=== PATIENT | male | born 1945 | race Caucasian/White ===

== ENCOUNTER → 2017-06-24 | Outpatient (CLI) | payer OTHER, MEDICARE | LOC: LABMALL 08:38 | DX: I67.82 Cerebral ischemia (principal); G51.3 Clonic hemifacial spasm ==

== ENCOUNTER 2017-12-09 08:58 | Inpatient (IN) | payer OTHER, MEDICARE ==
[~2017-12-09] VITALS: Ht 167.6 cm; Wt 86.3 kg
[2017-12-09] VITALS (13 sets, daily range): BP systolic 83–125; BP diastolic 45–93
--- NOTE | ~2017-12-09 | 2DMMODE ---
[facility] [address] [place] [address] 2 D/M-MODE ECHOCARDIOGRAM Name: NICKY WARD Room #: 208-P [facility] IN [facility]#: [id number] Admission: 12/09/17 Attend Phys: Joey Smart, Discharge: Date of : 41 Date of Service: 12/09/17 1443 Report #: [id number] THIS REPORT FOR: //name// APPROVED REPORT Study performed: 12/09/2017 13:16:47 EXAM: Comprehensive 2D, Doppler, and color-flow Echocardiogram Patient Location: Bedside Room #: 208 Status: routine BSA: 1.84 HR: 95 bpm BP: 89/73 mmHg Other Information Study Quality: Adequate Indications Atrial Fibrillation 2D Dimensions RVDd: 35.51 mm LVEF(%): 10.91 (>50%) IVSd: 13.29 (7-11mm) LVOT Diam: 20.97 (18-24mm) LVDd: 49.40 mm PWd: 13.15 (7-11mm) Ascending Ao: 22.66 (22-36mm) LVDs: 47.01 (25-40mm) Aortic Root: 26.10 mm IVC: 28.00 mm Panda's LVEF: 10.91 % Volumes Left Atrial Volume (Systole) Single Plane 4CH: 78.57 mL Single Plane 2CH: 60.33 mL LA ESV Index: 41.00 mL/m2 Aortic Valve AoV Peak Quinn.: 0.99 m/s AO Peak Gr.: 3.89 mmHg LVOT Max P.38 mmHg LVOT Max V: 0.77 m/s MACHO Vmax: 2.70 cm2 Pulmonary Valve PV Peak Quinn.: 0.67 m/s PV Peak Gr.: 1.80 mmHg Tricuspid Valve [facility] [place] [address] 2 D/M-MODE ECHOCARDIOGRAM Name: NICKY WARD Room #: 208-[facility] IN .R.#: [id number] Admission: 12/09/17 Attend Phys: Joey Smart, Discharge: Date of : 41 Date of Service: 12/09/17 1443 Report #: [id number] TR Peak Quinn.: 2.59 m/s TR Peak Gr.: 26.93 mmHg PA Pressure: 37.00 mmHg Left Ventricle The left ventricle is normal size. There is severe global hypokinesis of the left ventricle. Mild concentric left ventricular hypertrophy. Left ventricular ejection fraction is severely decreased. LVEF is 25%. This study is not technically sufficient to allow evaluation of the LV diastolic function due to atrial fibrillation. Right Ventricle The right ventricle is normal size. Right ventricular systolic function is grossly normal. Atria Left atrium is dilated. Right atrium is at the upper limits of normal. Aortic Valve The aortic valve is normal in structure. Aortic valve is calcified. No aortic regurgitation is present. There is no aortic valvular stenosis. Mitral Valve The mitral valve is normal in structure. Mild mitral regurgitation. No evidence of mitral valve stenosis. Tricuspid Valve The tricuspid valve is normal in structure. There is trace to mild tricuspid regurgitation. Estimated PAP 37 mmHg. There is mild pulmonary hypertension. Pulmonic Valve The pulmonary valve is normal in structure. Trace pulmonic regurgitation. Great Vessels The aortic root is normal in size. IVC is dilated and collapses <50% with inspiration. Pericardium There is no pericardial effusion. <Conclusion> The left ventricle is normal size. [facility] [address] [place] [address] 2 D/M-MODE ECHOCARDIOGRAM Name: EDNICKY Bullock Room #: 208-P [facility] IN ..#: [id number] Admission: 12/09/17 Attend Phys: Joey Smart, Discharge: Date of : 41 Date of Service: 12/09/17 1443 Report #: [id number] Mild concentric left ventricular hypertrophy. Left ventricular ejection fraction is severely decreased. The right ventricle is normal size. Left atrium is dilated. Aortic valve is calcified. There is no aortic valvular stenosis. Mild mitral regurgitation. There is trace to mild tricuspid regurgitation. Estimated PAP 37 mmHg. There is no pericardial effusion. <ELECTRONICALLY SIGNED> By: Apollo Ervin MD 12/09/17 1443 1443 1443 Apollo Ervin MD /BOGDAN
--- NOTE | ~2017-12-09 | HC ---
[facility] [address] [place] [address] CONSULTATION Name: WARDNICKY Bullock Room #: 203-P [facility] IN ..#: [id number] Admission: 12/09/17 Attend Phys: Joey Smart DO Discharge: Date of : 41 Report #: [id number] THIS REPORT FOR: //name// CC: Joey Lomax REASON FOR CONSULTATION: Acute kidney injury. REASON FOR PRESENTATION: Elevated blood sugar. HISTORY OF PRESENT ILLNESS: A 72-year-old with past medical history of poorly controlled diabetes mellitus and hypertension. He has not been taking any of the medications for the last few years. He presented after being evaluated by his primary care physician for an elevated blood sugar. On presentation, his creatinine was found to be around 1.3. He developed hypotension over the course of the last 24-48 hours. His creatinine has been steadily increasing to 3.1 today. I am being asked to manage his acute kidney injury. He had reported to significant weight loss with all symptoms of uncontrolled blood sugar including increased frequency, urgency, thirst. He was initiated on diltiazem with significant blood pressure drop. PAST MEDICAL HISTORY: 1. Diabetes mellitus. 2. Hypertension. 3. Flu. PAST SURGICAL HISTORY: Hernia MEDICATIONS: None for the last 4 years. SOCIAL HISTORY: Quit smoking a year ago. No drug or alcohol abuse. REVIEW OF SYSTEMS: GENERAL: No fever or chills. CARDIOVASCULAR: No chest pain or palpitation. PULMONARY: No cough or hemoptysis. GASTROINTESTINAL: No nausea or vomiting. GENITOURINARY: As per the history of present illness. SKIN: Bruising around the eye. PHYSICAL EXAMINATION: GENERAL: He is alert, oriented with raccoon eyes. VITAL SIGNS: Blood pressure is 120/76. HEAD AND NECK: No jugular venous distention. Raccoon eyes. CHEST: Decreased air entry bilaterally. CARDIOVASCULAR: Regular, with no rub. ABDOMEN: Soft, nontender. [facility] [address] [place] [address] CONSULTATION Name: NICKY WARD Room #: 203-P [facility] IN [facility]#: [id number] Admission: 12/09/17 Attend Phys: Joey Smart DO Discharge: Date of : 41 Report #: [id number] LOWER EXTREMITIES: No edema. LABORATORY DATA: Reviewed. BUN is 40, creatinine is 3.1. Chest x-ray reviewed. Echo reviewed. ASSESSMENT, IMPRESSION AND PLAN: 1. Acute kidney injury. 2. Severe cardiomyopathy. 3. Diabetes mellitus. 4. Hypotension. 5. His acute kidney injury is well explained by the hypotension. 6. We will send appropriate workup to rule out other causes. 7. Hold cardiac catheterization for now. 8. Continue with the IV fluid. 9. Avoid nephrotoxins. 10. We will continue to follow along. <ELECTRONICALLY SIGNED> By: Yusra Contreras MD 12/14/17 0848 0749 08 Yusra Contreras MD /sid
--- NOTE | ~2017-12-09 | EKG ---
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1945 Requested By: Howie Cox Order Number: [id number] MD: Preet Rios Measurements Intervals [place] Rate: 155 P: OK: QRS: -22 QRSD: 89 T: 146 QT: 290 QTc: 466 Interpretive Statements Atrial fibrillation with rapid V-rate Anteroseptal infarct, old Nonspecific ST and T wave abnormality No previous ECG available for comparison Electronically Signed On 12-09-2017 15:04:37 CDT by Preet Rios [email or web address] <ELECTRONICALLY SIGNED> By: Preet Rios MD, LOCATED [facility]IN [facility] 12/09/17 1504 0949 0949 Preet Rios MD, FAC /EPI
[2017-12-09 09:37] LABS: ABSOLUTE NEUTROPHILS 10.1 thou/uL (1.4-8.2); BASOPHILS 1.2 % (0.0-2.0); EOSINOPHILS 0.7 % (0.0-3.0); HEMATOCRIT 42.6 % (42.0-52.0); LYMPHOCYTES 11.8 % (24.0-44.0); MCH 30.3 pg (26.0-34.0); MCHC 32.9 g/dL (28.0-37.0); MCV 92.2 fL (80.0-100.0); MONOCYTES 7.8 % (1.0-8.0); POLYS 78.5 % (36.0-66.0); RBC 4.62 mil/uL (4.50-6.00); WBC 12.9 thou/uL (4.0-11.0)
[2017-12-09 09:46] LABS: CALCIUM 8.8 mg/dL (8.5-10.1); CREATININE 1.3 mg/dL (0.7-1.3); POTASSIUM 4.9 mmol/L (3.5-5.1)
[2017-12-09 09:48] LABS: BE(vivo) -2.3 mmol/L (-2 to +3); HCO3 24.1 mmol/L (22.0-26.0); PO2 VENOUS 30.1 mmHg (35.0-45.0)
[2017-12-09 09:49] LABS: ALBUMIN 3.7 g/dL (3.4-5.0); TOTAL BILIRUBIN 0.8 mg/dL (<0.1-1.0); TOTAL PROTEIN 6.6 g/dL (6.4-8.2)
[2017-12-09 09:51] LABS: LARGE PLATELETS FEW; PLATELET COUNT 210 thou/uL (150-400)
[2017-12-09 11:31] LABS: CHOLESTEROL 194 mg/dL (<200); HDL CHOLESTEROL 41 mg/dL (>40); LDL CHOLESTEROL 130 mg/dL (<100); TC:HDL 4.7 Ratio (Not establshd); TRIGLYCERIDE 117 mg/dL (<150); VLDL 23 mg/dL (<40)
[2017-12-09 11:58] LABS: FOLIC ACID 17.4 ng/mL (8.6-58.9); TSH 2.561 uIU/mL (0.358-3.740)
[2017-12-09] MEDS ORDERED: PRESERVISION T1 EACH PO (13:29)
[2017-12-09] MEDS ORDERED: EFFEXOR XR37.5 MG PO (13:30)
[2017-12-10] VITALS (10 sets, daily range): BP systolic 90–143; BP diastolic 54–102
[2017-12-10 03:06] LABS: GLYCOHEMOGLOBIN (HGB A1C) 13.5 % (4.8-5.6)
[2017-12-10 04:03] LABS: CALCIUM 8.3 mg/dL (8.5-10.1)
[2017-12-10 04:09] LABS: CREATININE 2.3 mg/dL (0.7-1.3)
[2017-12-11 03:41] LABS: CALCIUM 8.1 mg/dL (8.5-10.1); CREATININE 3.1 mg/dL (0.7-1.3); POTASSIUM 4.8 mmol/L (3.5-5.1)
[2017-12-11 04:15] LABS: ABSOLUTE NEUTROPHILS 12.1 thou/uL (1.4-8.2); BASOPHILS 0.4 % (0.0-2.0); EOSINOPHILS 0.3 % (0.0-3.0); HEMATOCRIT 40.7 % (42.0-52.0); HEMOGLOBIN 13.5 gm/dL (14.0-18.0); LYMPHOCYTES 10.4 % (24.0-44.0); MCH 30.3 pg (26.0-34.0); MCHC 33.1 g/dL (28.0-37.0); MCV 91.6 fL (80.0-100.0); MONOCYTES 10.8 % (1.0-8.0); PLATELET COUNT 164 thou/uL (150-400); POLYS 78.1 % (36.0-66.0); RBC 4.44 mil/uL (4.50-6.00); RDW 15.4 % (10.5-14.5); WBC 15.5 thou/uL (4.0-11.0)
[2017-12-11 05:17] VITALS: BP 110/76
[2017-12-11 06:18] LABS: URINE BLOOD NEGATIVE (Negative); URINE COLOR YELLOW; URINE GLUCOSE-RANDOM* NEGATIVE (Negative); URINE KETONES NEGATIVE (Negative); URINE LEUKOCYTES TRACE (Negative); URINE NITRITE NEGATIVE (Negative); URINE PROTEIN (DIPSTICK) 1+ (Negative); URINE SPECIFIC GRAVITY >= 1.030 (1.005-1.035); URINE UROBILINOGEN 0.2 E.U./dl (0.2-1.0)
[2017-12-11 06:35] LABS: URINE BILIRUBIN NEGATIVE (Negative); URINE CLARITY SL HAZY
[2017-12-11 06:59] LABS: BACTERIA >30 Many /HPF (None Seen); CASTS None Seen /LPF (None Seen); CRYSTALS None Seen /LPF (None Seen); SQUAMOUS None Seen /LPF (0-3); URINE RBC None Seen /HPF (0-2); URINE WBC 6-15 Few /HPF (0-5)
[2017-12-11 07:55] VITALS: BP 126/80
[2017-12-11 12:06] VITALS: BP 103/69
[2017-12-11 15:03] VITALS: BP 100/73
[2017-12-11 19:50] VITALS: BP 107/77
[2017-12-12 03:54] LABS: HEMOGLOBIN 13.2 gm/dL (14.0-18.0); MCH 30.3 pg (26.0-34.0); MCHC 32.9 g/dL (28.0-37.0); MCV 92.2 fL (80.0-100.0); PLATELET COUNT 167 thou/uL (150-400); RBC 4.34 mil/uL (4.50-6.00); RDW 15.3 % (10.5-14.5); WBC 14.4 thou/uL (4.0-11.0)
[2017-12-12 04:06] LABS: ALBUMIN 3.4 g/dL (3.4-5.0); CALCIUM 7.8 mg/dL (8.5-10.1); CREATININE 3.3 mg/dL (0.7-1.3); PHOSPHORUS 4.6 mg/dL (2.5-4.9)
[2017-12-12 04:30] VITALS: BP 110/78
[2017-12-12 04:45] LABS: ABSOLUTE NEUTROPHILS 9.9 thou/uL (1.4-8.2); ANISOCYTOSIS SLIGHT; METAMYELOCYTES 1 %
[2017-12-12 08:20] VITALS: BP 98/67
[2017-12-12 12:00] VITALS: BP 104/73
[2017-12-12 17:23] VITALS: BP 110/77
[2017-12-12 19:51] VITALS: BP 95/62
[2017-12-13 04:15] LABS: HEMATOCRIT 38.5 % (42.0-52.0); HEMOGLOBIN 13.1 gm/dL (14.0-18.0); MCV 91.2 fL (80.0-100.0); PLATELET COUNT 161 thou/uL (150-400); RBC 4.23 mil/uL (4.50-6.00); RDW 15.1 % (10.5-14.5); WBC 10.8 thou/uL (4.0-11.0)
[2017-12-13 04:21] LABS: CALCIUM 7.6 mg/dL (8.5-10.1); PHOSPHORUS 4.6 mg/dL (2.5-4.9); POTASSIUM 4.4 mmol/L (3.5-5.1)
[2017-12-13 05:06] VITALS: BP 117/82
[2017-12-13 07:24] VITALS: BP 116/84
[2017-12-13 11:28] LABS: ABSOLUTE NEUTROPHILS 7.5 thou/uL (1.4-8.2); ANISOCYTOSIS 1+
[2017-12-13 11:40] VITALS: BP 114/78
[2017-12-13 15:24] VITALS: BP 103/74
[2017-12-13 18:55] VITALS: BP 95/64
[2017-12-14 04:40] VITALS: BP 125/82
[2017-12-14 05:03] LABS: HEMATOCRIT 40.7 % (42.0-52.0); HEMOGLOBIN 13.5 gm/dL (14.0-18.0); MCH 30.2 pg (26.0-34.0); MCHC 33.1 g/dL (28.0-37.0); MCV 91.4 fL (80.0-100.0); PLATELET COUNT 194 thou/uL (150-400); RBC 4.46 mil/uL (4.50-6.00); RDW 15.7 % (10.5-14.5)
[2017-12-14 05:22] LABS: ALBUMIN 3.1 g/dL (3.4-5.0); CALCIUM 8.2 mg/dL (8.5-10.1); CREATININE 2.8 mg/dL (0.7-1.3); PHOSPHORUS 4.4 mg/dL (2.5-4.9); POTASSIUM 4.2 mmol/L (3.5-5.1)
[2017-12-14 07:17] VITALS: BP 95/62
[2017-12-14 08:01] LABS: ABSOLUTE NEUTROPHILS 10.4 thou/uL (1.4-8.2); ANISOCYTOSIS 1+; METAMYELOCYTES 2 %
[2017-12-14 15:23] VITALS: BP 96/69
[2017-12-14 19:45] VITALS: BP 107/71
[2017-12-15 03:45] VITALS: BP 103/68
[2017-12-15 04:24] LABS: HEMOGLOBIN 12.4 gm/dL (14.0-18.0); MCH 30.5 pg (26.0-34.0); MCHC 33.5 g/dL (28.0-37.0); MCV 91.2 fL (80.0-100.0); PLATELET COUNT 141 thou/uL (150-400); RBC 4.06 mil/uL (4.50-6.00); RDW 15.7 % (10.5-14.5); WBC 11.1 thou/uL (4.0-11.0)
[2017-12-15 04:30] LABS: ALBUMIN 2.8 g/dL (3.4-5.0); CREATININE 2.4 mg/dL (0.7-1.3); PHOSPHORUS 3.8 mg/dL (2.5-4.9); POTASSIUM 4.4 mmol/L (3.5-5.1)
[2017-12-15 05:01] LABS: ANISOCYTOSIS SLIGHT; ATYPICAL LYMPHS 1 %
[2017-12-15 07:09] VITALS: BP 95/54
[2017-12-15] MEDS ORDERED: PACERONE 200 M200 M1 PO (08:21)
[2017-12-15] MEDS ORDERED: ATORVASTATIN CA40 MG PO (08:21)
[2017-12-15] MEDS ORDERED: ELIQUIS2.5 MG PO (08:21)
[2017-12-15] MEDS ORDERED: LANTUS SOL100 UNIT/1 SUBQ (08:33)
[2017-12-15] MEDS ORDERED: CARVEDILOL3.125 MG PO (08:33)
[2017-12-15] MEDS ORDERED: NOVOLOG FL100 UNIT/M SUBQ (08:33)
[2017-12-15 10:14] VITALS: BP 95/54
[2017-12-15 11:43] VITALS: BP 95/54
== END 2017-12-15 14:44 | disposition home health service (06) | DRG 308 ==
LOC: ER 08:58 → EROBS 10:28 → 2N 10:28 → ENTRNSPT 12-15 14:31 → EDTRNSPTSTS 12-15 14:35 → 2N 12-15 14:44
PROVIDERS: Family Medicine; Hospitalist; Internal Medicine Cardiovascular Disease; Nurse Practitioner; Physician Assistant
PROC: B24BZZ4 Ultrasonography of Heart with Aorta, Transesophageal (ICD-10-PCS; principal; 2017-12-09)
DX: I48.0 Paroxysmal atrial fibrillation (principal); N17.0 Acute kidney failure with tubular necrosis; E43 Unspecified severe protein-calorie malnutrition; E87.1 Hypo-osmolality and hyponatremia; I42.9 Cardiomyopathy, unspecified; E11.65 Type 2 diabetes mellitus with hyperglycemia; E78.5 Hyperlipidemia, unspecified; N18.9 Chronic kidney disease, unspecified; E11.22 Type 2 diabetes mellitus with diabetic chronic kidney disease; F32.9 Major depressive disorder, single episode, unspecified; I12.9 Hypertensive chronic kidney disease with stage 1 through stage 4 chronic kidney disease, or unspecified chronic kidney disease; G50.0 Trigeminal neuralgia; I95.9 Hypotension, unspecified; S05.12XA Contusion of eyeball and orbital tissues, left eye, initial encounter; W18.39XA Other fall on same level, initial encounter; Z68.30 Body mass index [BMI] 30.0-30.9, adult; Z87.891 Personal history of nicotine dependence; Z91.14 Patient's other noncompliance with medication regimen; Y93.89 Activity, other specified; Y92.002 Bathroom of unspecified non-institutional (private) residence as the place of occurrence of the external cause; Y99.8 Other external cause status
CPT/HCPCS: 10081; 10194

== ENCOUNTER → 2018-04-15 | Outpatient (CLI) | payer OTHER, MEDICARE ==
[~2018-04-15] MED LIST: ATORVASTATIN CA40 MG PO; CARVEDILOL3.125 MG PO; EFFEXOR XR37.5 MG PO; ELIQUIS2.5 MG PO; LANTUS SOL100 UNIT/1 SUBQ; NOVOLOG FL100 UNIT/M SUBQ; PACERONE 200 M200 M1 PO; PRESERVISION T1 EACH PO
== END ==
LOC: HYPER 09:00
DX: L03.116 Cellulitis of left lower limb (principal); S91.312A Laceration without foreign body, left foot, initial encounter; E11.22 Type 2 diabetes mellitus with diabetic chronic kidney disease; I13.2 Hypertensive heart and chronic kidney disease with heart failure and with stage 5 chronic kidney disease, or end stage renal disease; N18.9 Chronic kidney disease, unspecified; E11.65 Type 2 diabetes mellitus with hyperglycemia; E11.36 Type 2 diabetes mellitus with diabetic cataract; E11.39 Type 2 diabetes mellitus with other diabetic ophthalmic complication; H40.9 Unspecified glaucoma; H42 Glaucoma in diseases classified elsewhere; L84 Corns and callosities; I48.2 Chronic atrial fibrillation; E78.5 Hyperlipidemia, unspecified; M10.9 Gout, unspecified; M79.672 Pain in left foot; F32.9 Major depressive disorder, single episode, unspecified; Z87.891 Personal history of nicotine dependence; Z79.4 Long term (current) use of insulin; X58.XXXA Exposure to other specified factors, initial encounter; Y93.89 Activity, other specified; Y92.89 Other specified places as the place of occurrence of the external cause; Y99.8 Other external cause status

== ENCOUNTER → 2018-11-19 | Outpatient (CLI) | payer OTHER, MEDICARE | LOC: ULTRA 09:09 | DX: M79.661 Pain in right lower leg (principal); R09.89 Other specified symptoms and signs involving the circulatory and respiratory systems ==

== ENCOUNTER 2018-12-30 06:31 | Inpatient (IN) | payer OTHER, MEDICARE ==
[~2018-12-30] VITALS: Ht 170.2 cm; Wt 74.8 kg
[2018-12-30 07:04] LABS: ABSOLUTE NEUTROPHILS 5.1 thou/uL (1.4-8.2); BASOPHILS 1.2 % (0.0-2.0); EOSINOPHILS 1.8 % (0.0-3.0); HEMATOCRIT 37.1 % (42.0-52.0); HEMOGLOBIN 12.4 gm/dL (14.0-18.0); LYMPHOCYTES 16.2 % (24.0-44.0); MCH 30.9 pg (26.0-34.0); MCHC 33.5 g/dL (28.0-37.0); MCV 92.4 fL (80.0-100.0); MONOCYTES 11.9 % (1.0-8.0); PLATELET COUNT 187 thou/uL (150-400); POLYS 68.9 % (36.0-66.0); RBC 4.01 mil/uL (4.50-6.00); RDW 17.4 % (10.5-14.5); WBC 7.4 thou/uL (4.0-11.0)
[2018-12-30 07:12] VITALS: BP 127/81
[2018-12-30 07:16] LABS: CALCIUM 9.3 mg/dL (8.5-10.1); CREATININE 1.7 mg/dL (0.7-1.3); POTASSIUM 4.4 mmol/L (3.5-5.1)
[2018-12-30 07:21] LABS: ALBUMIN 3.9 g/dL (3.4-5.0); TOTAL PROTEIN 6.9 g/dL (6.4-8.2)
[2018-12-30 07:23] LABS: APTT 31.3 Seconds (24.5-32.8); INR 1.3; PROTIME 13.5 Seconds (9.3-11.4)
[2018-12-30] MEDS ORDERED: XARELTO20 MG PO (07:29)
[2018-12-30] MEDS ORDERED: PEPCID20 MG PO (07:29)
[2018-12-30] MEDS ORDERED: LISINOPRIL2.5 MG PO (07:30)
[2018-12-30 11:05] VITALS: BP 128/86
--- NOTE | 2018-12-30 12:47 | NUR ---
PT ARRIVED TO THE UNIT AT APPROX 11AM BY PACU STAFF NURSE ACCOMPANIED BY FAMILY. PT ALERT AND ORIENTED, DENIES PAIN, VSS, PT UP X1 ASSIST, SLING IN PLACE POST ICD PLACEMENT. TELE PUT ON, SR ON MONITOR. ADMIT STRIP PRINTED AND DOCUMENTD. DENIES CONCERNS AT THIS TIME. WILL ACKNOWLEDGE AND IMPLEMENT ORDERS. CONTINUING TO MONITOR.
[2018-12-30] MEDS ORDERED: COZAAR 25 MG TA25 M1 PO (14:51)
[2018-12-30 16:00] VITALS: BP 126/75
--- NOTE | 2018-12-30 16:59 | NUR ---
ASSUMED CARE OF PT AT SHIFT CHANGE. ASSESSMENTS CHARTED. MEDS GIVEN PER NOV. PT ALERT AND ORIENTED, VSS, O2 SATS WNL ON ROOM AIR. PT UP SBA TO INDEPENDENT, WALKED WITH PHYSICAL THERAPY AND [facility] NURSE, TOLERATED WELL. PT CALLS APPROPRIATELY. PT BECAME SOB AFTER SECOND WALK WITH PHYSICAL THERAPY, RESOLVED WITH REST, O2 SATS WNL. ORIGINAL DRESSINGS STILL INTACT. DR. LEE NURSE CONTACTED ABOUT SHOWER FOR PT, INSTRUCTED TO SHOWER PATIENT TOMORROW. PT DENIES CONCERNS AT THIS TIME. WILL CONTINUE TO MONITOR AND FOLLOW POC.
[2018-12-30 19:07] VITALS: BP 121/74
--- NOTE | 2018-12-30 19:58 | NUR ---
PT CONTINUES TO BE ALERT AND ORIENTED, VSS, NO C/O PAIN. PT UP SBA TO BATHROOM, DIURESING APPROPRIATELY URINE OUTPUT ADEQUATE. O2 REMOVED AND O2 SATS REMAIN WNL ON ROOM AIR. NO S/SX OF CARD OR RESP DISTRESS NOTED. MINIMAL AMOUNT OF BLEEDING NOTICED FROM INCISON SITE, SMALL HEMATOMA NOTICED AROUND SITE, DR. HINOJOSA WAS ASKED BY THIS NURSE TO OBSERVE SITE, INSTRUCTED TO PUT PRESSURE DRESSING OVER, PRESSURE DRESSING APPLIED. SITE FREQUENTLY CHECKED, HEMATOMA NOW RESOLVED. NOTED SMALL AMOUNT OF BRUISING IN INNER LEFT ARM, SITE CONTINUES TO BE SOFT. PT DENIES CONCERNS AT THIS TIME. WILL CONT TO MONITOR AND FOLLOW POC.
--- NOTE | 2018-12-31 04:14 | NUR ---
ASSESSMENTS CHARTED. DENIES PAIN LEFT ARM IN IMMOBILIZER DURING NIGHT. ICD PLACED YESTERDAY. PATIENT SITTING UP IN RECLINER FOR COMFORT. PRESSURE DRESSING APPLIED TO INCISION SITE REMAINS INTACT, DRY. UP WITH STANDBY ASSIST. PLAN IS TO CONTINUE DIURESING THEN GO HOME.
[2018-12-31 04:33] VITALS: BP 126/82
[2018-12-31 05:03] LABS: ABSOLUTE NEUTROPHILS 7.9 thou/uL (1.4-8.2); BASOPHILS 0.8 % (0.0-2.0); EOSINOPHILS 1.3 % (0.0-3.0); HEMATOCRIT 36.4 % (42.0-52.0); HEMOGLOBIN 12.1 gm/dL (14.0-18.0); LYMPHOCYTES 7.3 % (24.0-44.0); MCH 30.7 pg (26.0-34.0); MCHC 33.3 g/dL (28.0-37.0); MCV 92.1 fL (80.0-100.0); MONOCYTES 11.2 % (1.0-8.0); PLATELET COUNT 167 thou/uL (150-400); POLYS 79.4 % (36.0-66.0); RBC 3.95 mil/uL (4.50-6.00); RDW 17.1 % (10.5-14.5)
[2018-12-31 05:14] LABS: CALCIUM 8.8 mg/dL (8.5-10.1); CREATININE 1.6 mg/dL (0.7-1.3); POTASSIUM 3.8 mmol/L (3.5-5.1)
[2018-12-31 07:30] VITALS: BP 126/92
[2018-12-31 10:06] VITALS: BP 126/92
--- NOTE | 2018-12-31 10:40 | NUR ---
ASSESSMENT CHARTED - MEDS PER NOV. NO CO'S OF PAIN OR NAUSEA. YAO DIET AND FLUIDS. UP AD LALA IN ROOM STEADY ON FEET. PT HOME THIS AM - INSTRUCTION RE HOME MEDS/ CARE AND FOLLOW UP GIVEN TO AND PATIENT STATED UNDERSTANDING OF INSTRUCTION GIVEN. PT LETF UNIT VIA WHEEL CHAIR MONIOTR AND IV X 2 REMOVED PRIOR TO D/C. PT HOME VIA PVT VEHICLE ACCOMPANIED BY - NO CO'S AT TIME OF D/C.
--- NOTE | 2019-01-03 14:16 | D ---
[facility] [place] [address] DISCHARGE SUMMARY Name: NICKY WARD Kobe Room #: 204-P [facility] IN ..#: [id number] Admission: 12/30/18 ������������������ Attend Phys: Nir López MD Discharge: 12/31/18 ������������������ Date of : 43 Report #: [id number] THIS REPORT FOR: //name// CC: Nir Lópeze [facility] DATE OF SERVICE: 12/31/2018 DISCHARGE DIAGNOSES: 1. Nonischemic cardiomyopathy. 2. Acute congestive heart failure. HISTORY OF PRESENT ILLNESS: The patient is a 73-year-old with history of nonischemic cardiomyopathy who came in for ICD implantation. He had called in earlier reporting increased shortness of breath and we started him on diuretics at home. He came in for the procedure and did have 3+ edema and positive JVD, but was able to lay flat. We decided to proceed with ICD implantation. ICD implantation was successful without any complications. We did have some difficulties finding a good place for the atrial lead, but eventually found a nice site with stable pacing and sensing thresholds. HOSPITAL COURSE: The patient was admitted to the hospital. He was started on aggressive IV diuretics. He received IV antibiotics. On the day of discharge, the patient was feeling better. The reports that his swelling and breathing had improved. PHYSICAL EXAMINATION: GENERAL: The patient was in no acute distress. HEART: Regular rate and rhythm. NECK: His JVD was decreased. LUNGS: Clear to auscultation. EXTREMITIES: His lower extremity edema was decreased from 3+ down to a trace to 1+ in the ankles. His incision site was healing nicely with some mild bruising. His device was interrogated and found to be functioning normally and his chest x-ray was within normal limits. We discussed staying an additional day to continue diuresis, but the patient felt improved enough to go home today. I instructed him to resume his diuretics that we started him on a few days ago. He will follow up with my nurse practitioner in 7-10 days for a site check. He will resume his anticoagulation on Thursday. ��������������������������������������������� <ELECTRONICALLY SIGNED> ���������������������������������������� By: Nir López MD ��������������������������������������������� 01/03/19 1416 0826 1753 Nir López MD /nt
--- NOTE | 2019-01-03 14:16 | P ---
[facility] [address] [place] [address] PROCEDURE REPORT Name: NICKY WARD Room #: 204-P [facility] IN M.R.#: [id number] Admission: 12/30/18 ������������������ Attend Phys: Nir López MD Discharge: 12/31/18 ������������������ Date of : 41 Report #: [id number] THIS REPORT FOR: //name// CC: Nir Jenkinsbillie DATE OF SERVICE: 12/30/2018 PREOPERATIVE DIAGNOSIS: Nonischemic cardiomyopathy. POSTOPERATIVE DIAGNOSIS: Nonischemic cardiomyopathy. PROCEDURES PERFORMED: Dual chamber ICD implantation. ANESTHESIA: The patient underwent MAC anesthesia with no anesthesia related complications. DESCRIPTION OF PROCEDURE: The patient underwent informed consent. We discussed the details of the procedure including the risks, which include but not limited to bleeding, infection, vascular damage, cardiac perforation, pneumothorax. He understood these risks and is willing to proceed. As such, the patient was brought to the EP Laboratory in a fasting and nonsedated state, prepped and draped in a sterile fashion. He received IV antibiotics prior to initiation of the procedure and underwent a venogram showing patency of left axillary vein. Next, I injected lidocaine at the incision site. Incision was made and a pocket was created over the prepectoral fascia and access was obtained twice to the left axillary vein using the extrathoracic approach. Sheaths were positioned using the modified Seldinger technique. Next, the RV lead was positioned in the right ventricular apex with adequate pacing and sensing thresholds. While I was positioning the atrial lead, the R-wave started to decrease, thresholds remained stable, but I decided to reposition this lead and we had improved R waves after repositioning the lead. Next, I attempted to position the atrial lead. Actually, this was somewhat challenging. I had to position it about 4 times as the lead would dislodge. I finally positioned the lead in the very high part of the right atrium where finally the lead remained in position. At all the other spots, it would have eventually dislodge. At this final position, I did advance the atrial lead several times to ensure it would not dislodge and remain stable. As such, both leads were sutured to the prepectoral fascia using Ethibond. The device was connected to leads and the pocket was closed in 2 layers using 2-0 for the deep layer, 3-0 for the middle layer and surgical glue was placed to the outer skin layer. The patient awoke neurologically and hemodynamically intact. No complications and no significant bleeding. The implanted defibrillator was a [employer], model #[id number], serial #[id number]. Atrial lead was a [employer], model #2088TC, 52 cm, serial #[id number] with a threshold of 2 volts at 0.5 milliseconds, pacing impedance of [facility] [address] [place] [address] PROCEDURE REPORT Name: NICKY WARD Room #: 204-P [facility] IN M.R.#: [id number] Admission: 12/30/18 ������������������ Attend Phys: Nir López MD Discharge: 12/31/18 ������������������ Date of : 41 Report #: [id number] 350 ohms and sensed P-wave of 1.4 millivolts. The RV lead was a [employer], model #7122, serial #[id number] with an R-wave of 8 millivolts, pacing impedance of 360 ohms and a pacing threshold 0.5 volts at 0.5 milliseconds. The device was programmed to DDDR 60-120 mode. The VT zone was set at 180-220 beats per minute with 3 rounds of burst followed by 3 rounds of ramp. The VF zone was set at greater than 222 beats per minute with ATP while charging followed by max output shocks. CONCLUSIONS: 1. Successful dual-chamber ICD implantation. 2. Satisfactory atrial and ventricular pacing and sensing thresholds. ��������������������������������������������� <ELECTRONICALLY SIGNED> ���������������������������������������� By: Nir López MD ��������������������������������������������� 01/03/19 1416 1019 0029 Nir López MD /nt
== END 2018-12-31 10:42 | disposition home or self-care (01) | DRG 227 ==
LOC: CATH 06:31 → 2N 11:02 → CATH 14:23 → ENTRNSPT 12-31 10:25 → EDTRNSPTSTS 12-31 10:32 → 2N 12-31 10:42
PROVIDERS: ADMIT Internal Medicine Cardiovascular Disease
DX: I50.9 Heart failure, unspecified (principal); I42.9 Cardiomyopathy, unspecified; Z79.899 Other long term (current) drug therapy

== ENCOUNTER 2019-01-11 11:06 | Inpatient (IN) | payer OTHER, MEDICARE ==
[~2019-01-11] VITALS: Ht 167.6 cm; Wt 69.4 kg
--- NOTE | ~2019-01-11 | D ---
[facility] [place] [address] DISCHARGE SUMMARY Name: NICKY WARD Kobe Room #: 206-[facility] IN .R.#: [id number] Admission: 01/11/19 ������������������ Attend Phys: Nir López MD Discharge: ������������������ Date of : 41 Report #: [id number] THIS REPORT FOR: //name// CC: Nir Lópeze [facility] DISCHARGE DIAGNOSIS: Pocket hematoma. PROCEDURES PERFORMED: Hematoma evacuation. HISTORY: The patient is a 73-year-old status post recent ICD implantation, recently had a fall at home and subsequently developed a pocket hematoma. He was admitted to the hospital for this and underwent a pocket hematoma evacuation yesterday with no complications. HOSPITAL COURSE: He was monitored in the CCU overnight, he did well on the day of discharge, he denied any fevers or chills or chest pain. PHYSICAL EXAMINATION: HEART: Regular rate and rhythm. LUNGS: Clear to auscultation bilaterally. ABDOMEN: Soft and nontender. EXTREMITIES: No clubbing, cyanosis, or edema. His incision was healing nicely with no further hematoma and no significant bruising noted. As such, he was deemed stable for discharge home. He will be discharged on his same home medications except we will continue to hold the Xarelto probably for an additional month. He will continue with the minocycline oral antibiotics as previously prescribed. He will follow up with my nurse practitioner in 1 week. ��������������������������������������������� ���������������������������������������� By: ��������������������������������������������� 0836 0955 Nir López MD /sid
--- NOTE | ~2019-01-11 | P ---
[facility] [place] [address] PROCEDURE REPORT Name: WARDNICKY Room #: 206-P [facility] IN .R.#: [id number] Admission: 01/11/19 ������������������ Attend Phys: Nir López MD Discharge: 01/12/19 ������������������ Date of : 41 Report #: [id number] THIS REPORT FOR: //name// CC: Nir Jenkinsbillie DATE OF SERVICE: 01/11/2019 PROCEDURE: Hematoma drainage. HISTORY: The patient is a 73-year-old male who is status post recent ICD implantation. Post-device implant, he did not have hematoma and we held anticoagulation for several days. He resumed his anticoagulation five days post-ablation and then had a fall and then developed hematoma along the chest wall. He is here for drainage of this hematoma. ANESTHESIA: The patient underwent MAC anesthesia with no anesthesia related complications. DESCRIPTION OF PROCEDURE: The patient underwent informed consent. We discussed the details of the procedure including the risks, which include but not limited to bleeding and infection. He understood these risks and is willing to proceed. The patient was brought to the EP laboratory in a fasting and sedated state, prepped and draped in sterile fashion. He received IV vancomycin for antibiotic prophylaxis. I then made an incision. After injecting with lidocaine, the pocket was entered. The hematoma was drained. I then irrigated the pocket with saline. I looked for any bleeders and none could be found. TYRX antibiotic pouch was placed in the pocket with device. The device was then closed in 2 layers using 2-0 for the deep layer, 3-0 for the middle layer and surgical glue was placed to the outer skin layer. The device was interrogated post-pocket revision and lead functions were stable. ICD therapies were re-enabled. CONCLUSIONS: Successful hematoma evacuation. ��������������������������������������������� ���������������������������������������� By: ��������������������������������������������� 0835 1407 Nir López MD /nt
[~2019-01-11 11:06] MED LIST changes: +COZAAR 25 MG TA25 M1 PO; +LISINOPRIL2.5 MG PO; +PEPCID20 MG PO; +XARELTO20 MG PO
[2019-01-11 11:34] VITALS: BP 114/72
[2019-01-11 12:12] LABS: ABSOLUTE NEUTROPHILS 6.3 thou/uL (1.4-8.2); BASOPHILS 0.6 % (0.0-2.0); EOSINOPHILS 2.1 % (0.0-3.0); HEMATOCRIT 33.3 % (42.0-52.0); HEMOGLOBIN 11.1 gm/dL (14.0-18.0); LYMPHOCYTES 11.8 % (24.0-44.0); MCH 30.5 pg (26.0-34.0); MCHC 33.3 g/dL (28.0-37.0); MCV 91.7 fL (80.0-100.0); MONOCYTES 9.4 % (1.0-8.0); PLATELET COUNT 175 thou/uL (150-400); POLYS 76.1 % (36.0-66.0); RBC 3.63 mil/uL (4.50-6.00); RDW 16.9 % (10.5-14.5); WBC 8.3 thou/uL (4.0-11.0)
[2019-01-11 12:25] LABS: ALBUMIN 3.8 g/dL (3.4-5.0); CALCIUM 9.1 mg/dL (8.5-10.1); CREATININE 1.3 mg/dL (0.7-1.3); POTASSIUM 4.3 mmol/L (3.5-5.1); TOTAL BILIRUBIN 0.8 mg/dL (<0.1-1.0); TOTAL PROTEIN 6.9 g/dL (6.4-8.2)
--- NOTE | 2019-01-11 16:22 | NUR ---
PT TO THE UNIT FROM THE CARDIAC CLINIC. HAD PACERMAKER PLACED EARLIER THIS MONTH AND INCISION BLEEDINIG - PT ADMITTED FOR EVACUATION OF GENERATOR POCKET. ASSESSMENT CHARTED - MEDS PER MAR - IV STARTED AND VANC GIVEN ORDERED. NO CO'S OF PAIN OR NAUSEA. UP AD LALA IN ROOM - PT TO SURGERY THIS AFTERNOON HAS NOT RETURNED TO THE UNIT OF YET.
--- NOTE | 2019-01-11 17:17 | EKG ---
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1945 Requested By: Ynes Grewal Order Number: [id number] MD: Preet Rios Measurements Intervals [place] Rate: 63 P: 55 MT: 210 QRS: -34 QRSD: 118 T: 57 QT: 663 QTc: 680 Interpretive Statements Sinus rhythm with possible occasional pre-excitation Nonspecific intraventricular conduction delay Inferior infarct, old Nonspecific ST and T wave abnormality Compared to ECG 12/09/2017 09:49:51 Sinus rhythm has replaced atrial fibrillation Electronically Signed On 01-11-2019 17:17:17 CDT by Preet Rios [email or web address] ��������������������������������������������� <ELECTRONICALLY SIGNED> ���������������������������������������� By: Preet Rios MD, [facility] ��������������������������������������������� 01/11/19 1717 1256 1256 Preet Rios MD, [facility] /EPI
[2019-01-11 19:55] VITALS: BP 115/76
[2019-01-12 00:37] VITALS: BP 127/78
--- NOTE | 2019-01-12 01:02 | NUR ---
ASSESSMENT CHARTED. INCISION SITE CLEAN, DRY, INTACT. NO BLEEDING EVIDENT. DUE TO RECENT FALLS, PATIENT PLACED ON HIGH FALL PRECAUTIONS. PLAN OF CARE INCLUDES PATIENT POSSIBLY GOING HOME IN AM.
[2019-01-12 04:24] LABS: BASOPHILS 0.8 % (0.0-2.0); EOSINOPHILS 2.3 % (0.0-3.0); HEMATOCRIT 32.4 % (42.0-52.0); LYMPHOCYTES 14.4 % (24.0-44.0); MCH 31.4 pg (26.0-34.0); MCHC 34.1 g/dL (28.0-37.0); MCV 92.1 fL (80.0-100.0); MONOCYTES 9.6 % (1.0-8.0); PLATELET COUNT 163 thou/uL (150-400); POLYS 72.9 % (36.0-66.0); RBC 3.52 mil/uL (4.50-6.00); RDW 16.6 % (10.5-14.5); WBC 8.3 thou/uL (4.0-11.0)
[2019-01-12 04:42] LABS: CALCIUM 8.8 mg/dL (8.5-10.1); CREATININE 1.3 mg/dL (0.7-1.3); POTASSIUM 4.3 mmol/L (3.5-5.1)
[2019-01-12 04:50] VITALS: BP 116/76
[2019-01-12 08:00] VITALS: BP 117/68
[2019-01-12] MEDS ORDERED: DEMADEX20 MG PO (09:43)
[2019-01-12] MEDS ORDERED: TRADJENTA5 MG PO (09:45)
[2019-01-12] MEDS ORDERED: CARVEDILOL3.125 MG PO (09:45)
[2019-01-12] MEDS ORDERED: MINOCIN50 MG PO (09:59)
[2019-01-12 10:05] VITALS: BP 116/76
[2019-01-12 10:10] VITALS: BP 116/76
--- NOTE | 2019-01-12 10:32 | NUR ---
ASSESSMENT CHARTED - MEDS PER NOV - NO CO'S OF PAIN OR NAUSEA - YAO DIET AND FLUIDS - INCISION C/D/I. PT HOME THIS AM - INSTRUCTION RE HOME MEDS/ CARE AND FOLLOW UP GIVEN TO PATIENT AND SPOUSE - STATED UNDERSTANDING OF INSTRUCTION GIVEN. LEFT UNIT VIA WHEELCHAIR - HOME VIA PVT VEHICLE ACCOMAPANIED BY - IV AND MONITOR REMOVED PRIOR TO D/C. NO CO'S T TIME OF DISCHARGE.
== END 2019-01-12 10:30 | disposition home or self-care (01) | DRG 605 ==
LOC: 2N 11:06 → ENTRNSPT 01-12 10:21 → EDTRNSPTSTS 01-12 10:23 → 2N 01-12 10:30
PROVIDERS: Nurse Practitioner; ADMIT Internal Medicine Cardiovascular Disease
PROC: 0JC60ZZ Extirpation of Matter from Chest Subcutaneous Tissue and Fascia, Open Approach (ICD-10-PCS; principal; 2019-01-11)
DX: S20.219A Contusion of unspecified front wall of thorax, initial encounter (principal); I42.9 Cardiomyopathy, unspecified; I48.0 Paroxysmal atrial fibrillation; I49.5 Sick sinus syndrome; N18.9 Chronic kidney disease, unspecified; E11.22 Type 2 diabetes mellitus with diabetic chronic kidney disease; F32.9 Major depressive disorder, single episode, unspecified; H40.9 Unspecified glaucoma; Z83.6 Family history of other diseases of the respiratory system; Z95.810 Presence of automatic (implantable) cardiac defibrillator; Z80.9 Family history of malignant neoplasm, unspecified; Z87.891 Personal history of nicotine dependence; W18.39XA Other fall on same level, initial encounter; Y93.89 Activity, other specified; Y92.89 Other specified places as the place of occurrence of the external cause; Y99.8 Other external cause status
CPT/HCPCS: 10081; 10797; 62110; 62900; 70005

== ENCOUNTER → 2019-11-04 | Outpatient (CLI) | payer OTHER, MEDICARE ==
[~2019-11-04] MED LIST changes: +DEMADEX20 MG PO; +INVOKANA100 MG PO; +MINOCIN50 MG PO; +TRADJENTA5 MG PO
== END ==
LOC: SJCVCIMAG 08:56
DX: I08.8 Other rheumatic multiple valve diseases (principal); I73.9 Peripheral vascular disease, unspecified; E11.00 Type 2 diabetes mellitus with hyperosmolarity without nonketotic hyperglycemic-hyperosmolar coma (NKHHC); I70.8 Atherosclerosis of other arteries; I42.9 Cardiomyopathy, unspecified; I48.91 Unspecified atrial fibrillation; I50.22 Chronic systolic (congestive) heart failure; Z95.810 Presence of automatic (implantable) cardiac defibrillator; Z87.891 Personal history of nicotine dependence

== ENCOUNTER → 2019-11-08 | Outpatient (CLI) | payer OTHER, MEDICARE | LOC: SJCVC 10:32 | DX: I44.7 Left bundle-branch block, unspecified (principal); I49.3 Ventricular premature depolarization; I49.8 Other specified cardiac arrhythmias; R94.31 Abnormal electrocardiogram [ECG] [EKG]; E11.22 Type 2 diabetes mellitus with diabetic chronic kidney disease; N18.9 Chronic kidney disease, unspecified; I48.91 Unspecified atrial fibrillation; I42.9 Cardiomyopathy, unspecified; I50.9 Heart failure, unspecified; Z95.0 Presence of cardiac pacemaker; Z79.899 Other long term (current) drug therapy ==

== ENCOUNTER → 2019-11-17 | Outpatient (CLI) | payer OTHER, MEDICARE | LOC: SJCVC 13:38 | DX: Z45.02 Encounter for adjustment and management of automatic implantable cardiac defibrillator (principal); I44.30 Unspecified atrioventricular block; I48.3 Typical atrial flutter; R94.31 Abnormal electrocardiogram [ECG] [EKG]; I48.20 Chronic atrial fibrillation, unspecified; I42.8 Other cardiomyopathies; I50.22 Chronic systolic (congestive) heart failure; E11.22 Type 2 diabetes mellitus with diabetic chronic kidney disease; N18.9 Chronic kidney disease, unspecified; I48.0 Paroxysmal atrial fibrillation; E78.5 Hyperlipidemia, unspecified; Z95.810 Presence of automatic (implantable) cardiac defibrillator; Z79.84 Long term (current) use of oral hypoglycemic drugs; Z79.899 Other long term (current) drug therapy; Z87.891 Personal history of nicotine dependence ==

== ENCOUNTER 2020-12-09 05:18 | Emergency (ER) | payer OTHER, MEDICARE ==
[~2020-12-09] VITALS: Ht 167.6 cm; Wt 74.4 kg
[2020-12-09] MEDS ORDERED: METFORMIN HCL500 MG PO (05:30)
[2020-12-09] MEDS ORDERED: CARVEDILOL3.125 MG PO (05:33)
[2020-12-09 06:08] LABS: HEMATOCRIT 37.5 % (42.0-52.0); HEMOGLOBIN 12.2 gm/dL (14.0-18.0); MCH 30.6 pg (26.0-34.0); MCHC 32.5 g/dL (28.0-37.0); MCV 94.2 fL (80.0-100.0); RBC 3.98 mil/uL (4.50-6.00); RDW 21.4 % (10.5-14.5); WBC 9.3 thou/uL (4.0-11.0)
[2020-12-09 06:42] LABS: CALCIUM 8.5 mg/dL (8.5-10.1); CREATININE 1.8 mg/dL (0.7-1.3); POTASSIUM 4.7 mmol/L (3.5-5.1)
[2020-12-09 06:48] LABS: ALBUMIN 3.2 g/dL (3.4-5.0); TOTAL BILIRUBIN 1.3 mg/dL (0.2-1.0); TOTAL PROTEIN 6.5 g/dL (6.4-8.2)
[2020-12-09 09:57] VITALS: BP 112/76
--- NOTE | 2020-12-10 07:24 | EKG ---
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: 1945 Requested By: Juan Manuel John Order Number: [id number] MD: Clem Dunn Measurements Intervals [place] Rate: 87 P: -26 RI: 44 QRS: 104 QRSD: 157 T: -58 QT: 466 QTc: 561 Interpretive Statements Atrial-paced complexes No further analysis attempted due to paced rhythm Compared to ECG 01/11/2019 12:56:13 Intraventricular conduction delay no longer present Myocardial infarct finding no longer present ST (T wave) deviation no longer present Electronically Signed On 12-10-2020 7:24:01 CDT by Clem Dunn [email or web address] <ELECTRONICALLY SIGNED> By: Clem Dunn MD, [facility] 12/10/20723 2 Clem Dunn MD, FAC /EPI
== END 2020-12-09 10:00 | disposition short-term general hospital (02) ==
LOC: ER 05:18
PROVIDERS: Emergency Medicine
DX: S00.83XA Contusion of other part of head, initial encounter (principal); R53.1 Weakness; I48.91 Unspecified atrial fibrillation; E78.5 Hyperlipidemia, unspecified; E11.22 Type 2 diabetes mellitus with diabetic chronic kidney disease; N18.9 Chronic kidney disease, unspecified; Z79.899 Other long term (current) drug therapy; Z87.891 Personal history of nicotine dependence; W01.0XXA Fall on same level from slipping, tripping and stumbling without subsequent striking against object, initial encounter; Y93.89 Activity, other specified; Y92.89 Other specified places as the place of occurrence of the external cause; Y99.8 Other external cause status